=== PATIENT | female | born 1940 | race Caucasian/White ===

== ENCOUNTER 2023-12-23 17:23 | Emergency (ER) | payer MEDICARE, OTHER, SELFPAY ==
[2023-12-23 17:27] VITALS: BP 181/73; PULSE 73; RESP 20; TEMP 36.7; O2SAT 100; BMI 25.0
--- NOTE | 2023-12-23 17:35 | DI.RAD.S_ITS ---
PROCEDURE: XR ANKLE LT MIN 3V INDICATIONS: fall with pain and unable to weight bare. TECHNIQUE: 3 views of the ankle were acquired. COMPARISON: None. FINDINGS: Bones: Suspected fracture of the lateral malleolus, below the syndesmosis. No posterior or medial malleolus fracture. Ankle mortise is maintained. Soft tissues: Large tibiotalar joint effusion. Achilles tendon appears normal. IMPRESSION: Suspected Lucas B fracture of the lateral malleolus, below the syndesmosis. No unstable fracture features. Dictated by: Asher Avery M.D. on 12/23/2023 at 18:45 Approved by: Asher Avery M.D. on 12/23/2023 at 18:47
--- NOTE | 2023-12-23 17:35 | DI.RAD.S_ITS ---
PROCEDURE: XR HIP W PEL IF DONE LT 2V INDICATIONS: fall left hip pain and unable to bare weight. TECHNIQUE: 2 views of the hip were acquired. COMPARISON: None. FINDINGS: Bones: Mild cortical disruption of the left inferior pubic ramus. Left total hip arthroplasty present. Soft tissues: No suspicious soft tissue calcifications or masses. IMPRESSION: Mild cortical disruption of the left inferior pubic ramus, suggestive of a minimally displaced fracture. Consider confirmation with CT. Dictated by: Asher Avery M.D. on 12/23/2023 at 18:47 Approved by: Asher Avery M.D. on 12/23/2023 at 18:50
--- NOTE | 2023-12-23 19:15 | ED.LOWEXIN ---
HPI - Extremity Injury (Lower) General Chief Complaint: Extremity Injury, Lower Stated Complaint: Mechanical fall -LEFT ankle pain Time Seen by Provider: 12/23/23 17:53 Source: patient and EMS Mode of arrival: EMS History of Present Illness HPI Narrative: Patient is an 83-year-old female. Not on anticoagulation who is here for evaluation of left ankle pain. She also describes left hip pain. Symptoms occurred when she was hiking and slipped and fell and got her ankle twisted underneath her. She was unable to walk afterwards. She arrived by EMS. Received pain medication by EMS. Did not hit her head. No loss of consciousness. No upper extremity discomfort. No right lower extremity discomfort. Related Data Previous Rx's Medication Instructions Recorded hydrocodone 5 mg-acetaminophen 325 1 tab PO Q4-6H PRN pain #14 tabs 12/23/23 mg tablet Allergies Allergy/AdvReac Type Severity Reaction Status Date / Time No Known Drug Allergies Allergy Verified 12/23/23 17:34 Review of Systems Constitutional Constitutional: Reports system reviewed and no additional complaints, except as documented Musculoskeletal Musculoskeletal: Reports system reviewed and no additional complaints, except as documented Integumentary/Breasts Skin/Breast: Reports system reviewed and no additional complaints, except as documented Neurologic Neurologic: Reports system reviewed and no additional complaints, except as documented Patient History Social History Smoking Status: Never smoker Smoking Status: Never smoker Substance Use Type: does not use Exam Initial Vital Signs Initial Vital Signs: Vital Signs Temperature 98.1 F 12/23/23 17:27 Pulse Rate 73 12/23/23 17:27 Respiratory Rate 20 12/23/23 17:27 Blood Pressure 181/73 H 12/23/23 17:27 Pulse Oximetry 100 12/23/23 17:27 Oxygen Delivery Method Room Air 12/23/23 17:27 Const General: cooperative, comfortable and No ill appearing Cardio Pulses: dorsalis pedis present on the left Skin General: no rashes or lesions noted Neuro General: patient alert, patient awake and moves all extremities Extrem General: capillary refill normal Left lower extremity: normal capillary refill Other: Discomfort along the lateral malleolus and just anterior to the lateral malleolus. No Achilles tendon tenderness. No tenderness over the medial malleolus. Dorsum of the foot is unremarkable. Proximal fibula is unremarkable. Procedures Orthopedic Splinting/Casting Injury #1: Side: left Lower Extremity Injury Location: ankle Lower Extremity Immobilizer: boot orthosis Post splinting neuro exam: no change Post splinting vascular exam: no change Placed by: Nursing Course Orders Ordered: ED Orders 12/23/23 17:35 XR ankle LT min 3V Stat XR hip w pel if done LT 2V Stat Discontinued Medications Hydrocodone Bitart/Acetaminophen (Hydrocodone/Acet 5/325 Tablet) 1 tab PO NOW ONE Stop: 12/23/23 19:17 Last Admin: 12/23/23 19:37 Dose: 1 tab Documented By: ASTON Hydrocodone Bitart/Acetaminophen (Hydrocodone/Acet 5/325 Prepack) 1 bottle MISC DIRECTED ONE Stop: 12/23/23 19:57 Last Admin: 12/23/23 20:08 Dose: 1 bottle Documented By: ASTON Vital Signs Vital signs: Vital Signs - 8 hr 12/23/23 17:27 12/23/23 20:19 Temperature 98.1 F Pulse Rate 73 67 Respiratory Rate 20 14 Blood Pressure 181/73 H 153/73 H Pulse Oximetry 100 99 Oxygen Delivery Method Room Air Room Air MDM - Extremity Injury (Lower) Imaging Data Extremity x-ray #1: Radiologist's Impression: PROCEDURE: XR ANKLE LT MIN 3V INDICATIONS: fall with pain and unable to weight bare. TECHNIQUE: 3 views of the ankle were acquired. COMPARISON: None. FINDINGS: Bones: Suspected fracture of the lateral malleolus, below the syndesmosis. No posterior or medial malleolus fracture. Ankle mortise is maintained. Soft tissues: Large tibiotalar joint effusion. Achilles tendon appears normal. IMPRESSION: Suspected Lucas B fracture of the lateral malleolus, below the syndesmosis. No unstable fracture features. Hip x-ray: Radiologist's Impression: PROCEDURE: XR HIP W PEL IF DONE LT 2V INDICATIONS: fall left hip pain and unable to bare weight. TECHNIQUE: 2 views of the hip were acquired. COMPARISON: None. FINDINGS: Bones: Mild cortical disruption of the left inferior pubic ramus. Left total hip arthroplasty present. Soft tissues: No suspicious soft tissue calcifications or masses. IMPRESSION: Mild cortical disruption of the left inferior pubic ramus, suggestive of a minimally displaced fracture. Consider confirmation with CT[facility] Narrative Medical decision making narrative: X-ray show inferior pubic rami fracture on the left which does fit her presentation. She also has a distal fibula fracture and she was tender over this area. She was placed in an orthopedic boot. Was able to ambulate with a walker. Will discharge home with pain medication and return precautions and follow-up instructions. She expressed understanding and agreement with plan. Discharge Plan Departure Patient Disposition: Home Clinical Impression: Inferior pubic ramus fracture, Fracture of lateral malleolus Instructions: How To Perform RICE (Rest, Ice, Compress, Elevate), How to Use a Walking Boot Activity Restrictions/Additional Instructions: The boot should be worn while you were standing and walking for the next several weeks. You can start to transition out of the boot once your discomfort has improved. You can take it off at night to sleep and also take it off to shower. Use the pain medication as needed. You can use a cane as needed as well. Return to the emergency department for new symptoms. Prescriptions: New hydrocodone-acetaminophen 5-325 mg tablet 1 tab PO Q4-6H PRN (Reason: pain) Qty: 14 0RF Stand Alone Forms: Patient Portal/API
[2023-12-23] MEDS: HYDROCODONE/ACET 5/325 TABLET 1 TAB PO (19:37)
[2023-12-23] MEDS: HYDROCODONE/ACET 5/325 PREPACK 1 BOTTLE MISC (20:08)
[2023-12-23 20:19] VITALS: BP 153/73; PULSE 67; RESP 14; O2SAT 99
== END 2023-12-23 20:21 | disposition home or self-care (01) ==
PROVIDERS: Emergency Provider Emergency Medicine
DX: S32.592A Other specified fracture of left pubis, initial encounter for closed fracture (principal); S82.62XA Displaced fracture of lateral malleolus of left fibula, initial encounter for closed fracture; W01.0XXA Fall on same level from slipping, tripping and stumbling without subsequent striking against object, initial encounter
CPT/HCPCS: 73502; 73610; 99283